=== PATIENT | male | born 1940 | race Caucasian/White ===

== ENCOUNTER → 2017-11-23 | Outpatient (CLI) | payer MEDICARE ==
[~2017-11-23] MED LIST: ACET325T14 PO; ACET650S12 PR; ASPI-496 PO; ATOR20TA PO; ATOR20TA9 PO; CARV12.52 PO; CHOL200024 PO; DEXT50DI3 IVPush; DOCU-131 PO; DULCOLAX PO; FAMO20TA7 PO; FERR140T2 PO; FERR325T18 PO; FURO20TA3 PO; GLUC1KIT IM; HYDR-3307 PO; HYDR25TA6 PO; INSU100C5 SQ-INSULIN; LOSA100T6 PO; MAGN400T7 PO; METF500T5 PO; METO50TA4 PO; OMEG1CAP23 PO; OMEP-110 PO; OMEP40CA6 PO; ONDA4TAB7 PO; OXYC15TA75 PO; POTA10TA6 PO; PROC5TAB40 PO; WARF3TAB52 PO; WARF4TAB PO; WARF6TAB47 PO; dextrose PO; milk of magnesia PO
== END | disposition home or self-care (01) ==
LOC: CVU 10:34
PROVIDERS: ATTEND Internal Medicine Cardiovascular Disease
DX: I08.2 Rheumatic disorders of both aortic and tricuspid valves (principal); I48.91 Unspecified atrial fibrillation
CPT/HCPCS: 93306

== ENCOUNTER → 2019-06-02 | Outpatient (CLI) | payer MEDICARE ==
[~2019-06-02] MED LIST changes: +ATOR20TA37 PO; -ATOR20TA9 PO; -FERR140T2 PO; +FERR140T3 PO; -HYDR-3307 PO; +HYDR-36 PO; +LOSA100T14 PO; -LOSA100T6 PO; -MAGN400T7 PO; +MAGN400T9 PO; +METF500T17 PO; -METF500T5 PO; +OMEP40CA42 PO; -OMEP40CA6 PO
== END | disposition home or self-care (01) ==
LOC: CVU 13:31
PROVIDERS: ATTEND Internal Medicine Cardiovascular Disease
DX: I35.1 Nonrheumatic aortic (valve) insufficiency (principal); I51.7 Cardiomegaly; T82.847A Pain due to cardiac prosthetic devices, implants and grafts, initial encounter; Z95.0 Presence of cardiac pacemaker
CPT/HCPCS: 93306

== ENCOUNTER 2021-01-09 13:44 | Outpatient (CLI) | payer MEDICARE ==
[~2021-01-09 13:44] MED LIST changes: +HYDR-3248 PO; -HYDR-36 PO; -OMEP40CA42 PO; +OMEP40CA8 PO
== END 2021-01-09 23:59 | disposition home or self-care (01) ==
LOC: CVU 13:44
PROVIDERS: ATTEND Internal Medicine Cardiovascular Disease
DX: I08.8 Other rheumatic multiple valve diseases (principal); I11.9 Hypertensive heart disease without heart failure; E11.9 Type 2 diabetes mellitus without complications
CPT/HCPCS: 93306